=== PATIENT | female | born 1995 | race Caucasian/White ===

== ENCOUNTER 2019-08-07 13:10 | Emergency (ER) | payer MEDICAID, OTHER ==
[~2019-08-07] VITALS: Ht 154.9 cm; Wt 82.7 kg
[2019-08-07 13:39] VITALS: BP 120/66
--- NOTE | 2019-08-07 14:09 | PHYS DOC ---
Past Medical History Past Medical History: No Pertinent History (BAILEY ZAMARRIPA APRN) Past Surgical History: No Surgical History (BAILEY ZAMARRIPA APRN) Smoking Status: Never Smoker Alcohol Use: None Drug Use: None (BAILEY ZAMARRIPA APRN) Adult General Chief Complaint Chief Complaint: HEADACHE HPI HPI Patient is a 24 year old female who presents with 4/10 posterior head pain currently radiating to the forehead that began yesterday after she fell off a jordan board. Patient also complaining of slight dizziness. Patient denies any nausea, vomiting. Denies any loss of consciousness. (BAILEY ZAMARRIPA APRN) Review of Systems Review of Systems Constitutional: Denies fever or chills [] Eyes: Denies change in visual acuity, redness, or eye pain [] HENT: Denies nasal congestion or sore throat [] Respiratory: Denies cough or shortness of breath [] Cardiovascular: No additional information not addressed in HPI [] GI: Denies abdominal pain, nausea, vomiting, bloody stools or diarrhea [] : Denies dysuria or hematuria [] Musculoskeletal: Denies back pain or joint pain [] Integument: Denies rash or skin lesions [] Neurologic: Reports headache, denies focal weakness or sensory changes [] All other systems were reviewed and found to be within normal limits, except as documented in this note. (BAILEY ZAMARRIPA APRN) Allergies Allergies Allergies Coded Allergies Type Severity Reaction Last Updated Verified Penicillins Allergy Intermediate 03/28/16 Yes amoxicillin Allergy Intermediate 03/28/16 Yes (NGUYỄN PEREZ DO) Physical Exam Physical Exam Constitutional: Well developed, well nourished, no acute distress, non-toxic appearance. [] HENT: Normocephalic, atraumatic, bilateral external ears normal, oropharynx moist, no oral exudates, nose normal. [] Eyes: PERRLA, EOMI, conjunctiva normal, no discharge. [] Neck: Normal range of motion, no tenderness, supple, no stridor. [] Cardiovascular:Heart rate regular rhythm, no murmur [] Lungs & Thorax: Bilateral breath sounds clear to auscultation [] Abdomen: Bowel sounds normal, soft, no tenderness, no masses, no pulsatile masses. [] Skin: Warm, dry, no erythema, no rash. [] Back: No tenderness, no CVA tenderness. [] Extremities: No tenderness, no cyanosis, no clubbing, ROM intact, no edema. [] Neurologic: Alert and oriented X 3, normal motor function, normal sensory function, no focal deficits noted. Cranial nerves II-XII intact. Psychologic: Affect normal, judgement normal, mood normal. [] (BAILEY ZAMARRIPA APRN) Current Patient Data Vital Signs Vital Signs Date Time Temp Pulse Resp B/P (MAP) Pulse Ox O2 Delivery O2 Flow Rate FiO2 08/07/19 13:39 97.8 79 16 120/66 (84) 96 Room Air 97.8 (NGUYỄN PEREZ DO) EKG EKG [] (BAILEY ZAMARRIPA APRN) Radiology/Procedures Radiology/Procedures [] (BAILEY ZAMARRIPA APRN) Course & Med Decision Making Course & Med Decision Making Pertinent Labs and Imaging studies reviewed. (See chart for details) This is a 24-year-old female patient presenting to the ED today with head pain that began yesterday after falling off a jordan board and hitting her head on the ground. No loss of consciousness. Patient is neurologically intact. Spoke to patient about risk and benefits of CT of the head. We all agreed she does not need a CAT scan today. Watchful waiting recommended. Provided return precautions. (BAILEY ZAMARRIPA APRN) Dragon Disclaimer Dragon Disclaimer This electronic medical record was generated, in whole or in part, using a voice recognition dictation system. (BAILEY ZAMARRIPA APRN) Departure Departure Impression: Primary Impression: Fall Additional Impression: Closed head injury with concussion Disposition: 01 HOME, SELF-CARE Condition: STABLE Referrals: NO PCP (PCP) follow up with your doctor in 1-2 weeks Patient Instructions: Concussion and Brain Injury, [id number] Additional Instructions: Please follow-up with your doctor in 1-2 weeks. You can take Tylenol as needed for pain. You can apply ice to the affected area. Come back to the ED at any point you have worsening symptoms including but not limited to uncontrolled pain, uncontrolled vomiting, excessive sleepiness, confusion or any other concerning symptoms. Attending Signature Attending Signature I have reviewed the PA/TRASHMAN's note and plan of care. I was available for consultation as needed during the patient's visit in the emergency department. I agree with the clinical impression, plan, and disposition. (NGUYỄN PEREZ DO) Problem Qualifiers Primary Impression: Fall Encounter type: initial encounter Qualified Codes: W19.XXXA - Unspecified fall, initial encounter Additional Impression: Closed head injury with concussion Encounter type: initial encounter Loss of consciousness presence/duration: with LOC of unspecified duration Qualified Codes: S06.0X9A - Concussion with loss of consciousness of unspecified duration, initial encounter BAILEY ZAMARRIPA APRN Aug 07, 2019 14:09 NGUYỄN PEREZ DO Aug 07, 2019 15:33
== END 2019-08-07 14:16 | disposition home or self-care (01) ==
LOC: ER 13:10
DX: S06.0X9A Concussion with loss of consciousness of unspecified duration, initial encounter (principal); R42 Dizziness and giddiness; Z88.0 Allergy status to penicillin; Z88.1 Allergy status to other antibiotic agents; W18.39XA Other fall on same level, initial encounter; Y93.89 Activity, other specified; Y92.89 Other specified places as the place of occurrence of the external cause; Y99.8 Other external cause status
CPT/HCPCS: 99281